=== PATIENT | female | born 1960 | race Caucasian/White ===

== ENCOUNTER 2017-11-14 10:14 | Inpatient (IN) | payer BC ==
[~2017-11-14] VITALS: Ht 170.2 cm; Wt 114.4 kg
[~2017-11-14 10:14] MED LIST: ATEN-173 PO; CYCL10TA6 PO; DICY1TAB25 PO; FLNIN NAE; LISI-787 PO; MELO15TA3 PO; NRN/300 PO; OMEP40CA41 PO; SERT1TAB68 PO
[2017-11-14] MEDS ORDERED: SODIUM CHLORIDE 0.9% 1000ML 1,000 ML IV STA ×3 (10:59→13:16)
[2017-11-14] MEDS ORDERED: ONDANSETRON INJ 2 MG/ML 2 ML VIAL IV STA (10:59)
[2017-11-14] MEDS ORDERED: HYDROmorphone INJ 1 MG/ML SYR IV PRN (11:00)
[2017-11-14 11:24] LABS: BASO % 0.1 %; BASO ABS # 0.02 K/uL (0-0.2); EOS % 0.7 %; EOS ABS # 0.11 K/uL (0-0.5); HEMOGLOBIN 13.3 g/dL (12.0-16.0); IG# 0.06 K/uL (0.00-0.02); LYMPH % 9.3 %; LYMPH ABS # 1.41 K/uL (1.2-3.4); MEAN CELL VOLUME 92.4 fL (80-100); MEAN CORPUSCULAR HEMOGLOBIN 31.5 pg (25-34); MEAN CORPUSCULAR HGB CONC 34.1 g/dl (32-36); MEAN PLATELET VOLUME 10.3 fL (7.4-10.4); MONO % 8.2 %; MONO ABS # 1.25 K/uL (0.11-0.59); NEUT % 81.3 %; NEUT ABS # 12.34 K/uL (1.4-6.5); PLATELET COUNT 277 K/uL (130-400); RED CELL DISTRIBUTION WIDTH CV 12.9 % (11.5-14.5); RED CELL DISTRIBUTION WIDTH SD 43.6 fL (36.4-46.3); WHITE BLOOD COUNT 15.19 K/uL (4.8-10.8)
[2017-11-14] MEDS ORDERED: POTA75TA PO (11:27)
[2017-11-14] MEDS ORDERED: RMR15 PO (11:27)
[2017-11-14] MEDS ORDERED: ASTN NAE (11:27)
[2017-11-14] MEDS ORDERED: PROP20TA67 PO (11:27)
[2017-11-14] MEDS ORDERED: FLUT0.15 NAE (11:27)
[2017-11-14] MEDS ORDERED: ASCA500 PO (11:27)
[2017-11-14] MEDS ORDERED: CHOL2000 PO (11:27)
[2017-11-14] MEDS ORDERED: VLT/75 PO (11:27)
[2017-11-14] MEDS ORDERED: RANI300T PO (11:27)
[2017-11-14] MEDS ORDERED: CALC-51 PO (11:27)
[2017-11-14 11:42] LABS: ALBUMIN 3.3 gm/dl (3.4-5.0); CREATININE 0.85 mg/dl (0.60-1.20); POTASSIUM 3.8 mmol/L (3.5-5.1)
[2017-11-14 11:45] LABS: TOTAL PROTEIN 7.4 gm/dl (6.4-8.2)
--- NOTE | 2017-11-14 12:28 | DIAGNOSTIC IMAGING REPORT ---
CT SCAN OF THE ABDOMEN AND PELVIS WITH IV CONTRAST CLINICAL HISTORY: Left lower quadrant abdominal pain. COMPARISON STUDY: Abdominal CT dated 07/02/2014. TECHNIQUE: Following the IV administration of 95 cc of Optiray 320, CT scan of the abdomen and pelvis is performed from the lung bases to the proximal femora. Images are reviewed in the axial, sagittal, and coronal planes. IV contrast was administered without complication. A dose lowering technique was utilized adhering to the principles of ALARA. CT DOSE: 1459.49 mGy.cm FINDINGS: Lung bases: The heart is normal in size and without pericardial effusion. The lung bases are clear. There is a tiny hiatal hernia. Liver: The contrast-enhanced liver is enlarged, measuring 20.2 cm in length. The liver demonstrates diffusely diminished attenuation consistent with hepatic steatosis. There is minimal central intrahepatic biliary ductal dilatation. The hepatic veins and portal veins are patent. Gallbladder: Surgically absent noting clips in the gallbladder fossa. Spleen: Normal in size and attenuation. There are calcified splenic granulomas. Pancreas: A 12 mm lipoma is incidentally noted in the pancreatic head. The pancreas is otherwise normal in appearance. Adrenal glands: Unremarkable. Kidneys: The contrast enhanced kidneys demonstrate mild cortical atrophy and are without hydronephrosis. The kidneys enhance symmetrically. There is a 3 mm nonobstructing calculus in the lower pole of the left kidney. Abdominal vasculature: The abdominal aorta is normal in course and caliber noting mild atherosclerotic calcification. Bowel: There is moderate colonic diverticulosis. There is significant wall thickening and edema with pericolonic inflammation and fluid seen involving the distal descending colon consistent with acute diverticulitis. No organized fluid collection is seen to indicate abscess. No bowel obstruction is identified. The appendix is well-visualized and normal. Peritoneum: There is trace free fluid in the pelvis. No intraperitoneal free air is identified. Lymphadenopathy: None. Pelvic viscera: The bladder, uterus, and adnexa are normal as visualized. Skeletal structures: The skeletal structures are osteopenic. Mild lumbosacral spondylosis is observed. No lytic or blastic lesions are seen. IMPRESSION: 1. Moderate colonic diverticulosis with evidence of acute diverticulitis involving the distal descending colon. No intraperitoneal free air is seen and there is no evidence of abscess. 2. Hepatomegaly and hepatic steatosis. 3. Nonobstructing left renal calculus. 4. Additional findings as above. Electronically signed by: Nader Caraballo M.D. 11/14/2017 12:27 PM Dictated Date/Time: 11/14/2017 12:21 PM
[2017-11-14] MEDS ORDERED: PIPERACILLIN/TAZOBACTAM 4.5 GM/100ML D5W IV STA (13:13)
[2017-11-14] MEDS ORDERED: HYDROmorphone INJ 0.5 MG/0.5 ML SYR IV STA (14:26)
[2017-11-14] MEDS ORDERED: FENTANYL CITRATE INJ 50 MCG/1 ML 2 ML VIAL IV STA (15:14)
[2017-11-14] MEDS ORDERED: SODIUM CHLORIDE 0.9% 500ML 500 ML IV STA (15:14)
--- NOTE | 2017-11-14 15:28 | EMERGENCY ROOM VISIT NOTE ---
History Report prepared by Grecia: Waldo Barragan Under the Supervision of: Dr. Odin Salinas M.D. First contact with patient: 10:44 Chief Complaint: ABDOMINAL PAIN Stated Complaint: ABDOMINAL AND BACK PAIN History of Present Illness The patient is a 57 year old female who presents to the Emergency Room with complaints of worsening left-sided abdominal pain for the past 3 days. She describes the pain as an 8/10 in severity. Patient states that the symptoms feel similar to when she was diagnosed with diverticulitis before. She states that the only difference is that she does not have diarrhea this time. Patient adds that she feels nauseas and has chills. She states that she does not know if the nausea is just because she hasn't eaten today. She states that her family doctor is Dr. Davis from [facility]. Patient adds that she was driven to the hospital by her mother. Pt denies LOC, headache, fevers, diaphoresis, visual changes, neck pain, chest pain, breathing difficulties, vomiting, back pain, melena, hematochezia, urinary symptoms, numbness, weakness, lymphadenopathy, rash, or other complaints. Source of History: patient Onset: 3 days Position: abdomen (Left-sided) Symptom Intensity: 8/10 Timing: worsening Modifying Factors (Relieving): other (None) Associated Symptoms: + chills, + nausea Review of Systems See HPI for pertinent positives and negatives. A total of ten systems were reviewed and were otherwise negative. Past Medical & Surgical Medical Problems: (1) Allergic rhinitis (2) Depression (3) Hypertension (4) Sleep apnea (5) Stomach ulcer Surgical Problems: (1) Status post cholecystectomy Family History Diabetes mellitus FHx: gallbladder disease FHx: myocardial infarction Hypertension Social History Smoking Status: Former Smoker Alcohol Use: none Marital Status: single Housing Status: lives with family Occupation Status: employed Current/Historical Medications Scheduled Ascorbic Acid (Vitamin C), 1 TAB PO DAILY Azelastine Hcl (Astelin Nasal [place]), 2 SPRAYS PIEDAD BID Calcium Carbonate-Vitamin D (Calcium), 1 TAB PO DAILY Cholecalciferol (Vitamin D3), 1 CAP PO DAILY Cyclobenzaprine Hcl (Flexeril), 10 MG PO HS Diclofenac Sod (Diclofenac Sodium Dr), 75 MG PO BID Fluticasone Propionate (Nasal) (Flonase Allergy Relief), 2 SPRAYS PIEDAD QAM Gabapentin (Neurontin), 300 MG PO TID Lisinopril/Hctz (Zestoretic 20MG/12.5MG), 0.5 TAB PO DAILY Mirtazapine (Mirtazapine), 15 MG PO HS Omeprazole (Prilosec), 40 MG PO QPM Potassium (Potassium), 1 TAB PO DAILY Propranolol (Inderal), 20 MG PO BID Ranitidine Hcl (Zantac), 300 MG PO HS Scheduled PRN Dicyclomine HCl (Dicyclomine HCl), 20 MG PO QID PRN for abdominal pain Allergies Coded Allergies: Sulfamethoxazole w/Trimethoprim (Verified Allergy, Severe, HIVES, 11/14/17) Physical Exam Vital Signs Date Time Temp Pulse Resp B/P (MAP) Pulse Ox O2 Delivery O2 Flow Rate FiO2 11/14/17 15:13 73 14 94/58 98 Nasal Cannula 2.0 11/14/17 15:01 88/55 11/14/17 14:55 70 15 98 Nasal Cannula 2.0 11/14/17 14:31 89/64 11/14/17 14:25 73 19 99 Nasal Cannula 2.0 11/14/17 14:06 69 15 101/53 99 Nasal Cannula 2.0 11/14/17 13:36 74 17 98 Nasal Cannula 2.0 11/14/17 13:31 98/64 11/14/17 13:16 103/58 11/14/17 13:06 68 13 97 Nasal Cannula 2.0 11/14/17 13:01 91/54 11/14/17 12:45 74 18 97 Nasal Cannula 2.0 11/14/17 12:29 74 16 97/65 96 Nasal Cannula 2.0 93/60 11/14/17 11:47 94 Nasal Cannula 2.0 11/14/17 11:45 75 16 88 Room Air 11/14/17 11:40 78 19 89 Room Air 11/14/17 11:35 79 19 87 Room Air 11/14/17 11:31 120/72 11/14/17 11:30 77 18 90 Room Air 11/14/17 11:25 77 11/14/17 11:25 75 15 89 Room Air 11/14/17 11:22 117/80 11/14/17 11:16 77 18 117/80 94 Room Air 11/14/17 10:21 37.5 80 20 165/106 94 Room Air Physical Exam GENERAL: Awake, alert, well-appearing, in no distress HENT: Normocephalic, atraumatic. Oropharynx unremarkable. EYES: Normal conjunctiva. Sclera non-icteric. NECK: Supple. No nuchal rigidity. FROM. No masses. RESPIRATORY: Clear to auscultation. No wheezes. No rales. Normal respiratory effort. CARDIAC: Normal rate. Normal rhythm. No murmurs. No rubs. Extremities warm and well perfused. Pulses equal. No JVD. GI: Soft, non-distended. LUQ and LLQ tenderness to palpation and worse in LLQ. No rebound or guarding. No masses. RECTAL: Deferred. MUSCULOSKELETAL: Atraumatic. Chest examination reveals no tenderness. The back is symmetrical on inspection without obvious abnormality. There is no CVA tenderness to palpation. No joint edema. LOWER EXTREMITIES: Calves are equal size bilaterally and non-tender. No edema. No discoloration. NEURO: Normal sensorium. No sensory or motor deficits noted. SKIN: No rash or jaundice noted. Medical Decision & Procedures ER Provider Diagnostic Interpretation: Radiology results as stated below per my review and radiologist interpretation: CT SCAN OF THE ABDOMEN AND PELVIS WITH IV CONTRAST CLINICAL HISTORY: Left lower quadrant abdominal pain. COMPARISON STUDY: Abdominal CT dated 07/02/2014. TECHNIQUE: Following the IV administration of 95 cc of Optiray 320, CT scan of the abdomen and pelvis is performed from the lung bases to the proximal femora. Images are reviewed in the axial, sagittal, and coronal planes. IV contrast was administered without complication. A dose lowering technique was utilized adhering to the principles of ALARA. CT DOSE: 1459.49 mGy.cm FINDINGS: Lung bases: The heart is normal in size and without pericardial effusion. The lung bases are clear. There is a tiny hiatal hernia. Liver: The contrast-enhanced liver is enlarged, measuring 20.2 cm in length. The liver demonstrates diffusely diminished attenuation consistent with hepatic steatosis. There is minimal central intrahepatic biliary ductal dilatation. The hepatic veins and portal veins are patent. Gallbladder: Surgically absent noting clips in the gallbladder fossa. Spleen: Normal in size and attenuation. There are calcified splenic granulomas. Pancreas: A 12 mm lipoma is incidentally noted in the pancreatic head. The pancreas is otherwise normal in appearance. Adrenal glands: Unremarkable. Kidneys: The contrast enhanced kidneys demonstrate mild cortical atrophy and are without hydronephrosis. The kidneys enhance symmetrically. There is a 3 mm nonobstructing calculus in the lower pole of the left kidney. Abdominal vasculature: The abdominal aorta is normal in course and caliber noting mild atherosclerotic calcification. Bowel: There is moderate colonic diverticulosis. There is significant wall thickening and edema with pericolonic inflammation and fluid seen involving the distal descending colon consistent with acute diverticulitis. No organized fluid collection is seen to indicate abscess. No bowel obstruction is identified. The appendix is well-visualized and normal. Peritoneum: There is trace free fluid in the pelvis. No intraperitoneal free air is identified. Lymphadenopathy: None. Pelvic viscera: The bladder, uterus, and adnexa are normal as visualized. Skeletal structures: The skeletal structures are osteopenic. Mild lumbosacral spondylosis is observed. No lytic or blastic lesions are seen. IMPRESSION: 1. Moderate colonic diverticulosis with evidence of acute diverticulitis involving the distal descending colon. No intraperitoneal free air is seen and there is no evidence of abscess. 2. Hepatomegaly and hepatic steatosis. 3. Nonobstructing left renal calculus. 4. Additional findings as above. Electronically signed by: Nader Caraballo M.D. 11/14/2017 12:27 PM Laboratory Results 11/14/17 10:58 Red Blood Count 4.22, Mean Corpuscular Volume 92.4, Mean Corpuscular Hemoglobin 31.5, Mean Corpuscular Hemoglobin Concent 34.1, Mean Platelet Volume 10.3, Neutrophils (%) (Auto) 81.3, Lymphocytes (%) (Auto) 9.3, Monocytes (%) (Auto) 8.2, Eosinophils (%) (Auto) 0.7, Basophils (%) (Auto) 0.1, Neutrophils # (Auto) 12.34, Lymphocytes # (Auto) 1.41, Monocytes # (Auto) 1.25, Eosinophils # (Auto) 0.11, Basophils # (Auto) 0.02 11/14/17 10:58 Test 11/14/17 10:45 11/14/17 10:58 Urine Color YELLOW Urine Appearance CLEAR (CLEAR) Urine pH 7.0 (4.5-7.5) Urine Specific [place] 1.019 (1.000-1.030) Urine Protein NEG (NEG) Urine Glucose (UA) NEG (NEG) Urine Ketones NEG (NEG) Urine Occult Blood NEG (NEG) Urine Nitrite NEG (NEG) Urine Bilirubin NEG (NEG) Urine Urobilinogen NEG (NEG) Urine Leukocyte Esterase TRACE (NEG) Urine WBC (Auto) 1-5 /hpf (0-5) Urine RBC (Auto) 5-10 /hpf (0-4) Urine Hyaline Casts (Auto) 0 /lpf (0-5) Urine Epithelial Cells (Auto) >30 /lpf (0-5) Urine Bacteria (Auto) NEG (NEG) White Blood Count 15.19 K/uL (4.8-10.8) Red Blood Count 4.22 M/uL (4.2-5.4) Hemoglobin 13.3 g/dL (12.0-16.0) Hematocrit 39.0 % (37-47) Mean Corpuscular Volume 92.4 fL (80-100) Mean Corpuscular Hemoglobin 31.5 pg (25-34) Mean Corpuscular Hemoglobin Concent 34.1 g/dl (32-36) Platelet Count 277 K/uL (130-400) Mean Platelet Volume 10.3 fL (7.4-10.4) Neutrophils (%) (Auto) 81.3 % Lymphocytes (%) (Auto) 9.3 % Monocytes (%) (Auto) 8.2 % Eosinophils (%) (Auto) 0.7 % Basophils (%) (Auto) 0.1 % Neutrophils # (Auto) 12.34 K/uL (1.4-6.5) Lymphocytes # (Auto) 1.41 K/uL (1.2-3.4) Monocytes # (Auto) 1.25 K/uL (0.11-0.59) Eosinophils # (Auto) 0.11 K/uL (0-0.5) Basophils # (Auto) 0.02 K/uL (0-0.2) RDW Standard Deviation 43.6 fL (36.4-46.3) RDW Coefficient of Variation 12.9 % (11.5-14.5) Immature Granulocyte % (Auto) 0.4 % Immature Granulocyte # (Auto) 0.06 K/uL (0.00-0.02) Anion Gap 6.0 mmol/L (3-11) Est Creatinine Clear Calc Drug Dose 97.7 ml/min Estimated GFR () 89.4 Estimated GFR (Non- 77.1 BUN/Creatinine Ratio 12.8 (10-20) Calcium Level 9.0 mg/dl (8.5-10.1) Total Bilirubin 0.6 mg/dl (0.2-1) Direct Bilirubin 0.2 mg/dl (0-0.2) Aspartate Amino Transf (AST/SGOT) 16 U/L (15-37) Alanine Aminotransferase (ALT/SGPT) 27 U/L (12-78) Alkaline Phosphatase 112 U/L (45-117) Total Protein 7.4 gm/dl (6.4-8.2) Albumin 3.3 gm/dl (3.4-5.0) Lipase 98 U/L (73-393) Laboratory results reviewed by me Medications Administered Medications (Trade) Dose Ordered Sig/[place] Route Start Time Stop Time Status Last Admin Dose Admin Ondansetron HCl (Zofran Inj) 4 mg NOW STAT IV 11/14/17 10:59 11/14/17 11:04 DC 11/14/17 11:14 4 MG Hydromorphone HCl (Dilaudid Inj) 1 mg Q15M PRN IV 11/14/17 11:00 11/14/17 14:27 DC 11/14/17 11:15 1 MG Sodium Chloride 1,000 ml @ 999 mls/hr Q1H1M STAT IV 11/14/17 10:59 11/14/17 11:59 DC 11/14/17 11:14 999 MLS/HR Piperacillin Sod/ Tazobactam Sod (Zosyn Iv) 4.5 gm NOW STAT IV 11/14/17 13:13 11/14/17 13:15 DC 11/14/17 13:19 4.5 GM Sodium Chloride 1,000 ml @ 999 mls/hr Q1H1M STAT IV 11/14/17 13:16 11/14/17 14:16 DC 11/14/17 13:19 999 MLS/HR Sodium Chloride 1,000 ml @ 200 mls/hr Q5H STAT IV 11/14/17 13:16 11/14/17 18:15 11/14/17 14:05 200 MLS/HR ED Course 1048: The patient was evaluated in room C4. A complete history and physical exam was performed. 1059: Sodium Chloride 1000 ml @ 999 mls/hr IV, Zofran Inj 4mg IV, and Dilaudid Inj 1mg IV 1313: Zosyn Iv 4.5gm IV 1316: Sodium Chloride 1000 ml @ 200 mls/hr IV and Sodium Chloride 1000 ml @ 999 mls/hr IV 1420: Patient states that he is still in a a lot of pain. I am calling the [facility] to admit the patient. Patient is agreeable to the treatment plan. 1426: Dilaudid Inj 0.5mg IV 1435: Upon reexamination, the patient will be further evaluated. I discussed the test results and treatment plan with Dr. Beckman. The patient will be evaluated for further management. Medical Decision Prior records/ancillary studies reviewed. Triage Nursing notes reviewed and agree them. The patient's history was concerning for abdominal pain. Differential diagnosis: Etiologies such as appendicitis, diverticulitis, PUD, biliary pathology, UTI, pancreatitis, obstruction, mesenteric ischemia, aortic pathology, infections, inflammatory bowel disease, renal colic, as well as others were entertained. Physical examination findings: As above. ER treatment provided: IV normal saline boluses and maintenance IV Dilaudid IV Zofran IV Zosyn On reassessment the patient felt better but her blood pressure was mildly marginal. She was not tachycardic or febrile. I suspect this was secondary to the narcotics. Her blood pressure improved after fluids and another dose of Dilaudid was ordered but was not given. This was changed to IV fentanyl 50 mcg. Diagnostics interpreted by me: The labs revealed a mild leukocytosis on CBC. Chemistry panel unremarkable. Imaging studies: CT scan as above The patient is still symptomatic with pain. Further management will be necessary in the hospital. The patient was in agreement. Consultation: A consultation was placed with the [facility]. The case was discussed and diagnostics were reviewed. The patient was evaluated in the ER for further treatment. Medication Reconcilliation Current Medication List: was personally reviewed by me Blood Pressure Screening Patient's blood pressure: Normal blood pressure Blood pressure disposition: Did not require urgent referral Consults Time Called: [phone] Consulting Physician: Dr. Beckman - [facility] Returned Call: [phone] Discussed the patient's case. The patient will be evaluated for further treatment and disposition. Impression Primary Impression: Acute diverticulitis Scribe Attestation The scribe's documentation has been prepared under my direction and personally reviewed by me in its entirety. I confirm that the note above accurately reflects all work, treatment, procedures, and medical decision making performed by me. Departure Information Dispostion Being Evaluated By Hospitalist Referrals Tony Davis M.D.([facility]) (PCP) Forms Call Back Authorization, HOME CARE DOCUMENTATION FORM, IMPORTANT VISIT INFORMATION Patient Instructions My [facility]
[2017-11-14] MEDS ORDERED: POLYETHYLENE (MIRALAX) 17 GM PACK PO PRN (16:00)
[2017-11-14] MEDS ORDERED: ONDANSETRON INJ 2 MG/ML 2 ML VIAL IV PRN (16:00)
[2017-11-14] MEDS ORDERED: ACETAMINOPHEN 325 MG TAB PO PRN (16:00)
[2017-11-14 16:45] VITALS: BP 102/70; PULSE 71; TEMP 36.7; O2SAT 98
[2017-11-14] MEDS ORDERED: PIPERACILL/TAZOBAC CONSULT ACTIVE PRN (17:00)
[2017-11-14 17:24] VITALS: O2SAT 98; Ht 170.2 cm; Wt 114.4 kg
--- NOTE | 2017-11-14 17:28 | History and Physical ---
History & Physical Date & Time of Service: Nov 14, 2017 at 17:01 Chief Complaint: Acute Diverticulitis Primary Care Physician: Tony Davis M.D.(CHERRY) History of Present Illness Source: patient Patient is a 57 yo female who presents to the ER for complaints LLQ and lower abdominal pain that initially began on , but then progressively worsened. The patient states she first felt the pain prior to defecation, which was relieved after a BM. She staters the pain happened again on Wednesday afternoon but did not go away completely after a BM. On Wednesday she reports having pain the entire day without any bowel movements the whole day; she also reports decreased appetite and poor PO intake. Today her pain intensified and again she did not have a BM, but also had some associated nausea. She reports experiencing SONG and chills the last 2 days as well. She has noticed she urinates less and the urine is darker. She otherwise denies any melena, hematochezia, diarrhea, vomiting, fevers, or dysuria. She denies any recent changes to her diet other than starting to eat colt seeds for the past 1 week. She reports having 2 prior episodes of diverticulitis, 1 of which required hospitalization, but not recently. Past Medical/Surgical History Medical Problems: (1) Allergic rhinitis (2) Depression (3) Diverticulitis (4) Hypertension (5) Sleep apnea (6) Hx of Gastric ulcer Surgical Problems: (1) Status post cholecystectomy Family History Diabetes mellitus FHx: gallbladder disease FHx: myocardial infarction Hypertension Social History Smoking Status: Former Smoker (states she smoked less than 5 years when she was in her 20's) Alcohol Use: occasionally Drug Use: none Marital Status: single Housing status: lives with family Occupational Status: employed Allergies Coded Allergies: Sulfamethoxazole w/Trimethoprim (Verified Allergy, Severe, HIVES, 11/14/17) Home Medications Scheduled Ascorbic Acid (Vitamin C), 1 TAB PO DAILY Azelastine Hcl (Astelin Nasal [place]), 2 SPRAYS PIEDAD BID Calcium Carbonate-Vitamin D (Calcium), 1 TAB PO DAILY Cholecalciferol (Vitamin D3), 1 CAP PO DAILY Cyclobenzaprine Hcl (Flexeril), 10 MG PO HS Diclofenac Sod (Diclofenac Sodium Dr), 75 MG PO BID Fluticasone Propionate (Nasal) (Flonase Allergy Relief), 2 SPRAYS PIEDAD QAM Gabapentin (Neurontin), 300 MG PO TID Lisinopril/Hctz (Zestoretic 20MG/12.5MG), 0.5 TAB PO DAILY Mirtazapine (Mirtazapine), 15 MG PO HS Omeprazole (Prilosec), 40 MG PO QPM Potassium (Potassium), 1 TAB PO DAILY Propranolol (Inderal), 20 MG PO BID Ranitidine Hcl (Zantac), 300 MG PO HS Scheduled PRN Dicyclomine HCl (Dicyclomine HCl), 20 MG PO QID PRN for abdominal pain Review of Systems Constitutional: + chills, No fever, No sweats, No weight loss, No weakness Eyes: No worsening of vision, No eye pain, No redness, No diplopia ENT: No hearing loss, No unusual epistaxis, No nasal symptoms, No sore throat Respiratory: No cough, No sputum, No wheezing, No shortness of breath Cardiovascular: No chest pain, No edema, No claudication, No palpitations Abdomen: + pain, + nausea, No vomiting, No diarrhea, No GI bleeding Musculoskeletal: No joint pain, No muscle pain, No swelling Genitourinary - Female: No dysuria, No urinary frequency, No urinary urgency, No hematuria Neurologic: No paralysis, No weakness, No numbness/tingling, No vertigo Psychiatric: No depression symptoms, No anxiety, No insomnia, No substance abuse Endocrine: No fatigue, No excessive thirst, No excessive urination Hematologic / Lymphatic: No abnormal bleeding/bruising, No swollen lymph nodes , No night sweats Integumentary: No rash, No itch, No new/changing skin lesions Physical Exam Vital Signs Date Time Temp Pulse Resp B/P (MAP) Pulse Ox O2 Delivery O2 Flow Rate FiO2 11/14/17 16:45 36.7 71 18 102/70 (81) 98 Nasal Cannula 2.0 11/14/17 16:31 72 18 110/61 95 Nasal Cannula 2.0 11/14/17 15:13 73 14 94/58 98 Nasal Cannula 2.0 11/14/17 15:01 88/55 11/14/17 14:55 70 15 98 Nasal Cannula 2.0 11/14/17 14:31 89/64 11/14/17 14:25 73 19 99 Nasal Cannula 2.0 11/14/17 14:06 69 15 101/53 99 Nasal Cannula 2.0 11/14/17 13:36 74 17 98 Nasal Cannula 2.0 11/14/17 13:31 98/64 11/14/17 13:16 103/58 11/14/17 13:06 68 13 97 Nasal Cannula 2.0 11/14/17 13:01 91/54 11/14/17 12:45 74 18 97 Nasal Cannula 2.0 11/14/17 12:29 74 16 97/65 96 Nasal Cannula 2.0 93/60 11/14/17 11:47 94 Nasal Cannula 2.0 11/14/17 11:45 75 16 88 Room Air 11/14/17 11:40 78 19 89 Room Air 11/14/17 11:35 79 19 87 Room Air 11/14/17 11:31 120/72 11/14/17 11:30 77 18 90 Room Air 11/14/17 11:25 77 11/14/17 11:25 75 15 89 Room Air 11/14/17 11:22 117/80 11/14/17 11:16 77 18 117/80 94 Room Air 11/14/17 10:21 37.5 80 20 165/106 94 Room Air General Appearance: WD/WN, no apparent distress Head: normocephalic, atraumatic Eyes: PERRL, EOMI, sclerae normal (conjunctivae clear) ENT: hearing grossly normal Neck: supple, no JVD, no carotid bruits, trachea midline Respiratory/Chest: chest non-tender, lungs clear, normal breath sounds, no respiratory distress, no accessory muscle use Cardiovascular: regular rate, rhythm, no edema, no gallop, no JVD, no murmur Abdomen/GI: normal bowel sounds, soft, no organomegaly, + tenderness Back: normal inspection, no CVA tenderness Extremities/Musculoskelatal: normal inspection, no calf tenderness, normal capillary refill, no pedal edema Neurologic/Psych: no motor/sensory deficits, alert, normal mood/affect, normal reflexes Skin: normal color, warm/dry, no rash Diagnostics Laboratory Results Results Past 24 Hours Test 11/14/17 10:45 11/14/17 10:58 Range/Units Urine Color YELLOW Urine Appearance CLEAR CLEAR Urine pH 7.0 4.5-7.5 Urine Specific [place] 1.019 1.000-1.030 Urine Protein NEG NEG Urine Glucose (UA) NEG NEG Urine Ketones NEG NEG Urine Occult Blood NEG NEG Urine Nitrite NEG NEG Urine Bilirubin NEG NEG Urine Urobilinogen NEG NEG Urine Leukocyte Esterase TRACE NEG Urine WBC (Auto) 1-5 0-5 /hpf Urine RBC (Auto) 5-10 0-4 /hpf Urine Hyaline Casts (Auto) 0 0-5 /lpf Urine Epithelial Cells (Auto) >30 0-5 /lpf Urine Bacteria (Auto) NEG NEG White Blood Count 15.19 4.8-10.8 K/uL Red Blood Count 4.22 4.2-5.4 M/uL Hemoglobin 13.3 12.0-16.0 g/dL Hematocrit 39.0 37-47 % Mean Corpuscular Volume 92.4 80-100 fL Mean Corpuscular Hemoglobin 31.5 25-34 pg Mean Corpuscular Hemoglobin Concent 34.1 32-36 g/dl Platelet Count 277 130-400 K/uL Mean Platelet Volume 10.3 7.4-10.4 fL Neutrophils (%) (Auto) 81.3 % Lymphocytes (%) (Auto) 9.3 % Monocytes (%) (Auto) 8.2 % Eosinophils (%) (Auto) 0.7 % Basophils (%) (Auto) 0.1 % Neutrophils # (Auto) 12.34 1.4-6.5 K/uL Lymphocytes # (Auto) 1.41 1.2-3.4 K/uL Monocytes # (Auto) 1.25 0.11-0.59 K/uL Eosinophils # (Auto) 0.11 0-0.5 K/uL Basophils # (Auto) 0.02 0-0.2 K/uL RDW Standard Deviation 43.6 36.4-46.3 fL RDW Coefficient of Variation 12.9 11.5-14.5 % Immature Granulocyte % (Auto) 0.4 % Immature Granulocyte # (Auto) 0.06 0.00-0.02 K/uL Sodium Level 141 136-145 mmol/L Potassium Level 3.8 3.5-5.1 mmol/L Chloride Level 107 98-107 mmol/L Carbon Dioxide Level 28 21-32 mmol/L Anion Gap 6.0 3-11 mmol/L Blood Urea Nitrogen 11 7-18 mg/dl Creatinine 0.85 0.60-1.20 mg/dl Est Creatinine Clear Calc Drug Dose 97.7 ml/min Estimated GFR () 89.4 Estimated GFR (Non- 77.1 BUN/Creatinine Ratio 12.8 10-20 Random Glucose 114 70-99 mg/dl Calcium Level 9.0 8.5-10.1 mg/dl Total Bilirubin 0.6 0.2-1 mg/dl Direct Bilirubin 0.2 0-0.2 mg/dl Aspartate Amino Transf (AST/SGOT) 16 15-37 U/L Alanine Aminotransferase (ALT/SGPT) 27 12-78 U/L Alkaline Phosphatase 112 45-117 U/L Total Protein 7.4 6.4-8.2 gm/dl Albumin 3.3 3.4-5.0 gm/dl Lipase 98 73-393 U/L Impression Assessment and Plan ACUTE DIVERTICULITIS: -3rd lifetime episode -CT Abd/pelvis do not indicate any abscess; report moderate colonic diverticulosis with evidence of acute diverticulitis involving the distal descending colon. No intraperitoneal free air is seen. Non- obstructing Left renal calculus, hepatic steatosis -patient requesting PO, will start on clear liquids only -not septic -hydrated with 4 L via IV in the ER -continue zosyn -will need outpatient evaluation by surgery due to multiple recurrent episodes HTN: -BP has been low since getting IV dilaudid; will hold home BP meds -monitor and resume meds as needed KARAN: -cpap q HS recommended CHRONIC RHINITIS: -continue nasal spray GERD: -continue PPI + ranitidine Resuscitation Status VTE Prophylaxis Will order VTE Prophylaxis: Yes
[2017-11-14] MEDS: PIPERACILL/TAZOBAC IV 4.5 GM in NSS 100 ML IV SCH (18:35)
[2017-11-14 18:37] VITALS: BP 109/72; PULSE 81; TEMP 37; O2SAT 96
[2017-11-14] MEDS: HYDROmorphone INJ 0.5 MG/0.5 ML SYR IV PRN (19:17)
[2017-11-14] MEDS: PANTOprazole SOD 40 MG TAB PO SCH (21:25)
[2017-11-14] MEDS: RANITIDINE HCL 150 MG TAB PO SCH (21:25)
[2017-11-14] MEDS: PROPRANOLOL HCL 20 MG TAB PO SCH (21:26)
[2017-11-14] MEDS: GABAPENTIN 300 MG CAP PO SCH (21:27)
[2017-11-14] MEDS: MIRTAZAPINE TAB 15 MG TAB PO SCH (21:27)
[2017-11-14] MEDS ORDERED: PIPERACILL/TAZOBAC IV 3.375 GM in DEXTROSE 5% 100ML 100 ML IV SCH (22:00)
[2017-11-15 00:38] VITALS: BP 116/71; PULSE 72; TEMP 36.7; O2SAT 95
[2017-11-15] MEDS: PIPERACILL/TAZOBAC IV 4.5 GM in NSS 100 ML IV SCH ×3 (03:09→18:10)
[2017-11-15] MEDS: HYDROmorphone INJ 0.5 MG/0.5 ML SYR IV PRN ×2 (03:24→07:55)
[2017-11-15 07:45] VITALS: BP 111/69; PULSE 83; TEMP 37; O2SAT 95
[2017-11-15] MEDS: PROPRANOLOL HCL 20 MG TAB PO SCH ×2 (07:51→21:03)
[2017-11-15] MEDS: FLUTICASONE PROPIONATE NA SPR 16 GM BTL NAE SCH (07:51)
[2017-11-15] MEDS: GABAPENTIN 300 MG CAP PO SCH ×3 (07:51→21:03)
[2017-11-15 08:00] VITALS: O2SAT 95
[2017-11-15 08:06] LABS: HEMATOCRIT 36.7 % (37-47); HEMOGLOBIN 12.1 g/dL (12.0-16.0); MEAN CELL VOLUME 93.9 fL (80-100); MEAN CORPUSCULAR HEMOGLOBIN 30.9 pg (25-34); MEAN PLATELET VOLUME 10.2 fL (7.4-10.4); PLATELET COUNT 248 K/uL (130-400); RED CELL DISTRIBUTION WIDTH CV 13.2 % (11.5-14.5); RED CELL DISTRIBUTION WIDTH SD 45.4 fL (36.4-46.3); WHITE BLOOD COUNT 11.64 K/uL (4.8-10.8)
[2017-11-15 08:38] LABS: CALCIUM 8.4 mg/dl (8.5-10.1); CREATININE 0.87 mg/dl (0.60-1.20); POTASSIUM 3.7 mmol/L (3.5-5.1)
[2017-11-15 15:57] VITALS: BP 126/79; PULSE 94; TEMP 36.9; O2SAT 95
[2017-11-15 16:00] VITALS: O2SAT 95
--- NOTE | 2017-11-15 18:46 | Progress Note ---
Medicine Progress Note Date & Time of Visit: Nov 15, 2017 at 18:46. Subjective Patient doing better, states her pain feels as though it is less severe today. Has been tolerating clear liquids without issues. No BM yet but passing flatus. Denies any N/V. No overnight events noted. Has been ambulating in the room without difficulty. Objective Last 8 Hrs Date Time Temp Pulse Resp B/P (MAP) Pulse Ox O2 Delivery O2 Flow Rate FiO2 11/15/17 16:00 95 Room Air 11/15/17 15:57 36.9 94 18 126/79 (95) 95 Room Air Physical Exam: GENERAL: Patient is in no acute distress. HEENT: No acute trauma, normocephalic, mucous membranes moist, no nasal congestion, no scleral icterus. NECK: No stridor, trachea is midline. LUNGS: Clear to auscultation bilaterally, no wheeze, no rhonchi, breath sounds equal. HEART: Without murmurs gallops or rubs, regular rate and rhythm. ABDOMEN: Soft, nondistended, bowel sounds positive, slight tenderness in LLQ EXTREMITIES: No cyanosis or edema, full range of motion of all the joints without pain or difficulty, no signs for acute trauma. NEUROLOGIC: Oriented x 3, no acute motor or sensory deficits, no focal weakness. SKIN: No rash, no jaundice, no diaphoresis. Laboratory Results: Last 24 Hours Test 11/15/17 07:45 White Blood Count 11.64 K/uL Red Blood Count 3.91 M/uL Hemoglobin 12.1 g/dL Hematocrit 36.7 % Mean Corpuscular Volume 93.9 fL Mean Corpuscular Hemoglobin 30.9 pg Mean Corpuscular Hemoglobin Concent 33.0 g/dl RDW Standard Deviation 45.4 fL RDW Coefficient of Variation 13.2 % Platelet Count 248 K/uL Mean Platelet Volume 10.2 fL Sodium Level 142 mmol/L Potassium Level 3.7 mmol/L Chloride Level 107 mmol/L Carbon Dioxide Level 31 mmol/L Anion Gap 4.0 mmol/L Blood Urea Nitrogen 7 mg/dl Creatinine 0.87 mg/dl Est Creatinine Clear Calc Drug Dose 95.4 ml/min Estimated GFR () 86.9 Estimated GFR (Non- 75.0 BUN/Creatinine Ratio 8.5 Random Glucose 102 mg/dl Calcium Level 8.4 mg/dl Magnesium Level 2.1 mg/dl Assessment & Plan ACUTE DIVERTICULITIS: -3rd lifetime episode -CT Abd/pelvis do not indicate any abscess; report moderate colonic diverticulosis with evidence of acute diverticulitis involving the distal descending colon. No intraperitoneal free air is seen. Non- obstructing Left renal calculus, hepatic steatosis -patient requesting PO, will advance diet as tolerated; requesting full liquids today, taking in PO well without increase in abdominal pain -not septic -hydrated with 4 L via IV in the ER -continue zosyn day#2 -will need outpatient evaluation by surgery due to multiple recurrent episodes HTN: -BP has been low since admission; will hold home BP meds for now -monitor and resume meds as needed KARAN: -cpap q HS recommended CHRONIC RHINITIS: -continue nasal spray GERD: -continue PPI + ranitidine Current Inpatient Medications: Current Inpatient Medications Medications (Trade) Dose Ordered Sig/[place] Route Start Time Stop Time Status Last Admin Dose Admin Acetaminophen (Tylenol Tab) 650 mg Q4H PRN PO 11/14/17 16:00 12/14/17 15:59 Polyethylene (Miralax Powder Packet) 17 gm DAILY PRN PO 11/14/17 16:00 12/14/17 15:59 Ondansetron HCl (Zofran Inj) 4 mg Q6H PRN IV 11/14/17 16:00 12/14/17 15:59 Hydromorphone HCl (Dilaudid Inj) 0.5 mg Q4 PRN IV 11/14/17 17:00 11/28/17 16:59 11/15/17 07:55 0.5 MG Miscellaneous Information (Consult) 1 ea UD PRN N/A 11/14/17 17:00 12/14/17 16:59 Piperacillin Sod/ Tazobactam Sod 4.5 gm/Sodium Chloride 120 ml @ 30 mls/hr Q8H IV 11/14/17 18:00 11/24/17 17:59 11/15/17 18:10 30 MLS/HR Fluticasone Propionate (Flonase Nasal [place]) 2 sprays QAM PIEDAD 11/15/17 08:00 12/15/17 07:59 11/15/17 07:51 2 SPRAYS Gabapentin (Neurontin Cap) 300 mg TID PO 4/29/18 20:00 12/14/17 19:59 11/15/17 13:34 300 MG Mirtazapine (Remeron Tab) 15 mg HS PO 11/14/17 21:00 12/14/17 20:59 11/14/17 21:27 15 MG Propranolol HCl (Inderal Tab) 20 mg BID PO 11/14/17 20:00 12/14/17 19:59 11/15/17 07:51 20 MG Pantoprazole Sodium (Protonix Tab) 40 mg QPM PO 11/14/17 21:00 12/14/17 20:59 11/14/17 21:25 40 MG Ranitidine HCl (zANTac TAB) 300 mg HS PO 11/14/17 21:00 12/14/17 20:59 11/14/17 21:25 300 MG
[2017-11-15 21:01] VITALS: BP 125/75; PULSE 88
[2017-11-15] MEDS: MIRTAZAPINE TAB 15 MG TAB PO SCH (21:03)
[2017-11-15] MEDS: PANTOprazole SOD 40 MG TAB PO SCH (21:03)
[2017-11-15] MEDS: RANITIDINE HCL 150 MG TAB PO SCH (21:03)
[2017-11-16] VITALS: BP 143/87; PULSE 94; TEMP 36.7; O2SAT 95
[2017-11-16] MEDS: HYDROmorphone INJ 0.5 MG/0.5 ML SYR IV PRN (01:07)
[2017-11-16] MEDS: PIPERACILL/TAZOBAC IV 4.5 GM in NSS 100 ML IV SCH ×3 (01:10→17:58)
[2017-11-16 05:20] LABS: HEMATOCRIT 36.4 % (37-47); MEAN CELL VOLUME 93.3 fL (80-100); MEAN CORPUSCULAR HEMOGLOBIN 30.8 pg (25-34); PLATELET COUNT 273 K/uL (130-400); RED CELL DISTRIBUTION WIDTH CV 12.9 % (11.5-14.5); RED CELL DISTRIBUTION WIDTH SD 44.2 fL (36.4-46.3); WHITE BLOOD COUNT 9.57 K/uL (4.8-10.8)
[2017-11-16 05:55] LABS: CREATININE 0.95 mg/dl (0.60-1.20); POTASSIUM 3.8 mmol/L (3.5-5.1)
[2017-11-16 07:44] VITALS: BP 124/89; PULSE 80; TEMP 36.8; O2SAT 96
[2017-11-16] MEDS: PROPRANOLOL HCL 20 MG TAB PO SCH ×2 (08:16→20:26)
[2017-11-16] MEDS: GABAPENTIN 300 MG CAP PO SCH ×3 (08:16→20:25)
[2017-11-16] MEDS: FLUTICASONE PROPIONATE NA SPR 16 GM BTL NAE SCH (08:17)
--- NOTE | 2017-11-16 10:21 | Progress Note ---
Medicine Progress Note Date & Time of Visit: November 16, 2017 at 10:21. Subjective seen sitting up in bedside chair comfortable states LLQ pain is improving has some abdominal cramping- patient reports this developed after having cream of wheat last night and this morning no nausea denies fever/chills no other symptoms Objective Last 8 Hrs Date Time Temp Pulse Resp B/P (MAP) Pulse Ox O2 Delivery O2 Flow Rate FiO2 11/16/17 08:30 Room Air 11/16/17 07:44 36.8 80 18 124/89 (101) 96 Room Air Physical Exam: General- adult Head- atraumatic Eyes- PERRL, EOMI, anicteric ENT- oropharynx clear Neck- supple, no JVD, no adenopathy, no thyromegaly Lungs- clear to auscultation bilaterally Heart- regular rhythm; no murmur, normal rate Abdomen- normal bowel sounds, soft, nontender, non distended Extremities- no pretibial edema, no calf tenderness Neuro- alert, oriented x 3; no gross focal deficits Skin- warm & dry Laboratory Results: Last 24 Hours Test 11/16/17 05:06 White Blood Count 9.57 K/uL Red Blood Count 3.90 M/uL Hemoglobin 12.0 g/dL Hematocrit 36.4 % Mean Corpuscular Volume 93.3 fL Mean Corpuscular Hemoglobin 30.8 pg Mean Corpuscular Hemoglobin Concent 33.0 g/dl RDW Standard Deviation 44.2 fL RDW Coefficient of Variation 12.9 % Platelet Count 273 K/uL Mean Platelet Volume 10.0 fL Sodium Level 142 mmol/L Potassium Level 3.8 mmol/L Chloride Level 106 mmol/L Carbon Dioxide Level 32 mmol/L Anion Gap 4.0 mmol/L Blood Urea Nitrogen 7 mg/dl Creatinine 0.95 mg/dl Est Creatinine Clear Calc Drug Dose 87.4 ml/min Estimated GFR () 78.2 Estimated GFR (Non- 67.4 BUN/Creatinine Ratio 7.3 Random Glucose 108 mg/dl Calcium Level 9.0 mg/dl Magnesium Level 2.2 mg/dl Assessment & Plan ACUTE DIVERTICULITIS: -3rd lifetime episode -CT Abd/pelvis do not indicate any abscess; report moderate colonic diverticulosis with evidence of acute diverticulitis involving the distal descending colon. No intraperitoneal free air is seen. Non- obstructing Left renal calculus, hepatic steatosis - pain improving no fever leukocytosis resolved - advanced diet to soft, low lactose continue Zosyn day 3--> transition to PO Cipro and Flagyl on discharge -will need outpatient evaluation by surgery due to multiple recurrent episodes HTN: - BP on the lower side hold BP medications for now monitor KARAN: -cpap q HS recommended CHRONIC RHINITIS: -continue nasal spray GERD: -continue PPI + ranitidine DVT Prophylaxis SCDs Disposition pending anticipate d/c home when medically stable Current Inpatient Medications: Current Inpatient Medications Medications (Trade) Dose Ordered Sig/[place] Route Start Time Stop Time Status Last Admin Dose Admin Acetaminophen (Tylenol Tab) 650 mg Q4H PRN PO 11/14/17 16:00 12/14/17 15:59 Polyethylene (Miralax Powder Packet) 17 gm DAILY PRN PO 11/14/17 16:00 12/14/17 15:59 Ondansetron HCl (Zofran Inj) 4 mg Q6H PRN IV 11/14/17 16:00 12/14/17 15:59 Hydromorphone HCl (Dilaudid Inj) 0.5 mg Q4 PRN IV 11/14/17 17:00 11/28/17 16:59 11/16/17 01:07 0.5 MG Miscellaneous Information (Consult) 1 ea UD PRN N/A 11/14/17 17:00 12/14/17 16:59 Piperacillin Sod/ Tazobactam Sod 4.5 gm/Sodium Chloride 120 ml @ 30 mls/hr Q8H IV 11/14/17 18:00 11/24/17 17:59 11/16/17 10:08 30 MLS/HR Fluticasone Propionate (Flonase Nasal [place]) 2 sprays QAM PIEDAD 11/15/17 08:00 12/15/17 07:59 11/16/17 08:17 2 SPRAYS Gabapentin (Neurontin Cap) 300 mg TID PO 11/14/17 20:00 12/14/17 19:59 11/16/17 08:16 300 MG Mirtazapine (Remeron Tab) 15 mg HS PO 11/14/17 21:00 12/14/17 20:59 11/15/17 21:03 15 MG Propranolol HCl (Inderal Tab) 20 mg BID PO 11/14/17 20:00 12/14/17 19:59 11/16/17 08:16 20 MG Pantoprazole Sodium (Protonix Tab) 40 mg QPM PO 11/14/17 21:00 12/14/17 20:59 11/15/17 21:03 40 MG Ranitidine HCl (zANTac TAB) 300 mg HS PO 11/14/17 21:00 12/14/17 20:59 11/15/17 21:03 300 MG
[2017-11-16] MEDS: DICYCLOMINE HCL 10 MG CAP PO PRN (11:00)
[2017-11-16] MEDS: KETOROLAC TROMETHAMINE 15 MG/ML VIAL IV PRN ×2 (13:40→22:06)
[2017-11-16 15:39] VITALS: BP 102/67; PULSE 68; TEMP 36.4; O2SAT 95
[2017-11-16 16:00] VITALS: O2SAT 95
[2017-11-16] MEDS: MIRTAZAPINE TAB 15 MG TAB PO SCH (20:25)
[2017-11-16] MEDS: RANITIDINE HCL 150 MG TAB PO SCH (20:25)
[2017-11-16] MEDS: PANTOprazole SOD 40 MG TAB PO SCH (20:26)
[2017-11-16 23:42] VITALS: BP 99/62; PULSE 75; TEMP 36.8; O2SAT 95
[2017-11-17] MEDS: PIPERACILL/TAZOBAC IV 4.5 GM in NSS 100 ML IV SCH ×2 (01:36→09:52)
[2017-11-17 07:49] VITALS: BP 135/83; PULSE 78; TEMP 36.8; O2SAT 97
[2017-11-17 08:13] LABS: BASO % 0.3 %; BASO ABS # 0.02 K/uL (0-0.2); EOS % 2.8 %; EOS ABS # 0.19 K/uL (0-0.5); HEMATOCRIT 37.4 % (37-47); HEMOGLOBIN 12.6 g/dL (12.0-16.0); IG# 0.02 K/uL (0.00-0.02); LYMPH % 21.4 %; LYMPH ABS # 1.48 K/uL (1.2-3.4); MEAN CELL VOLUME 92.1 fL (80-100); MEAN CORPUSCULAR HGB CONC 33.7 g/dl (32-36); MEAN PLATELET VOLUME 9.5 fL (7.4-10.4); MONO % 7.7 %; MONO ABS # 0.53 K/uL (0.11-0.59); NEUT % 67.5 %; NEUT ABS # 4.66 K/uL (1.4-6.5); PLATELET COUNT 294 K/uL (130-400); RED CELL DISTRIBUTION WIDTH CV 12.4 % (11.5-14.5)
[2017-11-17] MEDS: DICYCLOMINE HCL 10 MG CAP PO PRN (08:32)
[2017-11-17] MEDS: GABAPENTIN 300 MG CAP PO SCH ×2 (08:32→14:01)
[2017-11-17] MEDS: PROPRANOLOL HCL 20 MG TAB PO SCH (08:32)
[2017-11-17] MEDS: FLUTICASONE PROPIONATE NA SPR 16 GM BTL NAE SCH (08:34)
[2017-11-17 08:39] LABS: CALCIUM 9.1 mg/dl (8.5-10.1); CREATININE 0.93 mg/dl (0.60-1.20); POTASSIUM 4.1 mmol/L (3.5-5.1)
[2017-11-17 10:57] VITALS: BP 135/83; PULSE 78; TEMP 36.8; O2SAT 97
--- NOTE | 2017-11-17 11:34 | Progress Note ---
Medicine Progress Note Date & Time of Visit: November 17, 2017 at 11:29. Subjective seen resting in bedside chair comfortable states she feels much better today LLQ is very minimal now "gas cramps" also improving tolerating diet well (+) BM, normal no other symptoms states she is ready and would like to be discharged today Objective Last 8 Hrs Date Time Temp Pulse Resp B/P (MAP) Pulse Ox O2 Delivery O2 Flow Rate FiO2 11/17/17 10:57 36.8 78 18 97 Room Air 11/17/17 08:00 Room Air 11/17/17 07:49 36.8 78 18 135/83 (100) 97 Room Air Physical Exam: General- adult Eyes- anicteric Neck- supple, no JVD Lungs- clear breath sounds bilaterally, no rales/wheezes Heart- regular rhythm; no murmur, normal rate Abdomen- normal bowel sounds, non distended, soft, nontender Extremities- no pretibial edema, no calf tenderness Neuro- alert, oriented x 3; no gross focal deficits Skin- warm & dry Laboratory Results: Last 24 Hours Test 11/17/17 08:06 White Blood Count 6.90 K/uL Red Blood Count 4.06 M/uL Hemoglobin 12.6 g/dL Hematocrit 37.4 % Mean Corpuscular Volume 92.1 fL Mean Corpuscular Hemoglobin 31.0 pg Mean Corpuscular Hemoglobin Concent 33.7 g/dl Platelet Count 294 K/uL Mean Platelet Volume 9.5 fL Neutrophils (%) (Auto) 67.5 % Lymphocytes (%) (Auto) 21.4 % Monocytes (%) (Auto) 7.7 % Eosinophils (%) (Auto) 2.8 % Basophils (%) (Auto) 0.3 % Neutrophils # (Auto) 4.66 K/uL Lymphocytes # (Auto) 1.48 K/uL Monocytes # (Auto) 0.53 K/uL Eosinophils # (Auto) 0.19 K/uL Basophils # (Auto) 0.02 K/uL RDW Standard Deviation 42.0 fL RDW Coefficient of Variation 12.4 % Immature Granulocyte % (Auto) 0.3 % Immature Granulocyte # (Auto) 0.02 K/uL Sodium Level 141 mmol/L Potassium Level 4.1 mmol/L Chloride Level 106 mmol/L Carbon Dioxide Level 31 mmol/L Anion Gap 4.0 mmol/L Blood Urea Nitrogen 10 mg/dl Creatinine 0.93 mg/dl Est Creatinine Clear Calc Drug Dose 89.3 ml/min Estimated GFR () 80.2 Estimated GFR (Non- 69.2 BUN/Creatinine Ratio 11.2 Random Glucose 112 mg/dl Calcium Level 9.1 mg/dl Assessment & Plan ACUTE DIVERTICULITIS: -3rd lifetime episode -CT Abd/pelvis do not indicate any abscess; report moderate colonic diverticulosis with evidence of acute diverticulitis involving the distal descending colon. No intraperitoneal free air is seen. Non- obstructing Left renal calculus, hepatic steatosis - pain much better no fever leukocytosis resolved - advanced diet to soft, low lactose--> tolerating well on Zosyn day 4 - discharge on: Cipro 500mg BID and Metronidazole 500mg TID x 1 week Bentyl PRN low fat, low fiber, low lactose diet ff up with PCP this wednesday -will need outpatient evaluation by surgery due to multiple recurrent episodes HYPERTENSION - resume usual medications KARAN: -cpap q HS recommended CHRONIC RHINITIS: -continue nasal spray GERD: -continue PPI + ranitidine DVT Prophylaxis SCDs Disposition d./c home today ff up with PCP this coming Wednesday Current Inpatient Medications: Current Inpatient Medications Medications (Trade) Dose Ordered Sig/[place] Route Start Time Stop Time Status Last Admin Dose Admin Acetaminophen (Tylenol Tab) 650 mg Q4H PRN PO 11/14/17 16:00 12/14/17 15:59 Polyethylene (Miralax Powder Packet) 17 gm DAILY PRN PO 11/14/17 16:00 12/14/17 15:59 11/16/17 13:41 17 GM Ondansetron HCl (Zofran Inj) 4 mg Q6H PRN IV 11/14/17 16:00 12/14/17 15:59 Hydromorphone HCl (Dilaudid Inj) 0.5 mg Q4 PRN IV 11/14/17 17:00 11/28/17 16:59 11/16/17 01:07 0.5 MG Miscellaneous Information (Consult) 1 ea UD PRN N/A 11/14/17 17:00 12/14/17 16:59 Piperacillin Sod/ Tazobactam Sod 4.5 gm/Sodium Chloride 120 ml @ 30 mls/hr Q8H IV 11/14/17 18:00 11/24/17 17:59 11/17/17 09:52 30 MLS/HR Fluticasone Propionate (Flonase Nasal [place]) 2 sprays QAM PIEDAD 11/15/17 08:00 12/15/17 07:59 11/17/17 08:34 2 SPRAYS Gabapentin (Neurontin Cap) 300 mg TID PO 11/14/17 20:00 12/14/17 19:59 11/17/17 08:32 300 MG Mirtazapine (Remeron Tab) 15 mg HS PO 11/14/17 21:00 12/14/17 20:59 11/16/17 20:25 15 MG Propranolol HCl (Inderal Tab) 20 mg BID PO 11/14/17 20:00 12/14/17 19:59 11/17/17 08:32 20 MG Pantoprazole Sodium (Protonix Tab) 40 mg QPM PO 11/14/17 21:00 12/14/17 20:59 11/16/17 20:26 40 MG Ranitidine HCl (zANTac TAB) 300 mg HS PO 11/14/17 21:00 12/14/17 20:59 11/16/17 20:25 300 MG Dicyclomine HCl (Bentyl Cap) 10 mg QID PRN PO 11/16/17 10:15 12/16/17 10:14 11/17/17 08:32 10 MG Ketorolac Tromethamine (Toradol Inj) 15 mg Q6H PRN IV 11/16/17 10:15 11/21/17 10:14 11/16/17 22:06 15 MG
[2017-11-17] MEDS ORDERED: BNT10 PO (11:38)
[2017-11-17] MEDS ORDERED: MTR500 PO (11:38)
[2017-11-17] MEDS ORDERED: CPR500 PO (11:38)
[2017-11-17] MEDS ORDERED: VLT/75 PO (11:38)
--- NOTE | 2017-11-17 11:42 | Discharge Instructions ---
Discharge Instructions Date of Service November 17, 2017. Admission Reason for Admission: Acute Diverticulitis Discharge Discharge Diagnosis / Problem: ACUTE DIVERTICULITIS Discharge Goals Goal(s): Diagnostic testing, Therapeutic intervention Activity Recommendations Activity Limitations: as noted below (NO HEAVY EXERTION UNTIL RE-EVALUATED BY PRIMARY CARE PHYSICIAN) Lifting Limitations: until after follow-up appointment Exercise/Sports Limitations: until after follow-up appointment Driving or Machine Use: NO DRIVING UNTIL RE-EVALUATED BY PRIMARY CARE PHYSICIAN . Instructions / Follow-Up Instructions / Follow-Up PLEASE REVIEW YOUR NEW MEDICATION LIST AND FOLLOW INSTRUCTIONS CAREFULLY. ENSURE ADEQUATE DAILY FLUID INTAKE. CALL YOUR PRIMARY CARE PHYSICIAN OR RETURN TO ER IMMEDIATELY IF WITH RECURRENCE OF SYMPTOMS, INCREASING ABDOMINAL PAIN, FEVER/CHILLS, NAUSEA, BLOODY OR BLACK STOOLS. FOLLOW UP WITH PRIMARY CARE PHYSICIAN THIS COMING WEDNESDAY. Current Hospital Diet Patient's current hospital diet: AHA Diet (Heart Healthy), Low Lactose Diet Discharge Diet Recommended Diet: AHA Diet (Heart Healthy), Low Fiber Diet, Low Fat Diet, Low Lactose Diet Procedures Procedures Performed: CT CSCAN OF THE ABOMEN AND PELVIS Pending Studies Studies pending at discharge: no Medical Emergencies . Who to Call and When: Medical Emergencies: If at any time you feel your situation is an emergency, please call 911 immediately. . Non-Emergent Contact Non-Emergency issues call your: Primary Care Provider Call Non-Emergent contact if: you have a fever, your pain is not controlled, your pain is worsening, you have any medication questions . . "Provider Documentation" section prepared by Manuel Clifford. .
--- NOTE | 2017-11-17 12:24 | Discharge Summary ---
Discharge Summary Date of Service November 17, 2017. Discharge Summary Admission Date: Nov 14, 2017 at 15:53 Discharge Date: November 17, 2017 Discharge Disposition: Home Principal Diagnosis: ACUTE DIVERTICULITIS: Secondary Diagnoses/Problems: Please refer to hospital course below. Procedures: CT SCAN OF THE ABDOMEN AND PELVIS WITH IV CONTRAST CLINICAL HISTORY: Left lower quadrant abdominal pain. COMPARISON STUDY: Abdominal CT dated 07/02/2014. TECHNIQUE: Following the IV administration of 95 cc of Optiray 320, CT scan of the abdomen and pelvis is performed from the lung bases to the proximal femora. Images are reviewed in the axial, sagittal, and coronal planes. IV contrast was administered without complication. A dose lowering technique was utilized adhering to the principles of ALARA. CT DOSE: 1459.49 mGy.cm FINDINGS: Lung bases: The heart is normal in size and without pericardial effusion. The lung bases are clear. There is a tiny hiatal hernia. Liver: The contrast-enhanced liver is enlarged, measuring 20.2 cm in length. The liver demonstrates diffusely diminished attenuation consistent with hepatic steatosis. There is minimal central intrahepatic biliary ductal dilatation. The hepatic veins and portal veins are patent. Gallbladder: Surgically absent noting clips in the gallbladder fossa. Spleen: Normal in size and attenuation. There are calcified splenic granulomas. Pancreas: A 12 mm lipoma is incidentally noted in the pancreatic head. The pancreas is otherwise normal in appearance. Adrenal glands: Unremarkable. Kidneys: The contrast enhanced kidneys demonstrate mild cortical atrophy and are without hydronephrosis. The kidneys enhance symmetrically. There is a 3 mm nonobstructing calculus in the lower pole of the left kidney. Abdominal vasculature: The abdominal aorta is normal in course and caliber noting mild atherosclerotic calcification. Bowel: There is moderate colonic diverticulosis. There is significant wall thickening and edema with pericolonic inflammation and fluid seen involving the distal descending colon consistent with acute diverticulitis. No organized fluid collection is seen to indicate abscess. No bowel obstruction is identified. The appendix is well-visualized and normal. Peritoneum: There is trace free fluid in the pelvis. No intraperitoneal free air is identified. Lymphadenopathy: None. Pelvic viscera: The bladder, uterus, and adnexa are normal as visualized. Skeletal structures: The skeletal structures are osteopenic. Mild lumbosacral spondylosis is observed. No lytic or blastic lesions are seen. IMPRESSION: 1. Moderate colonic diverticulosis with evidence of acute diverticulitis involving the distal descending colon. No intraperitoneal free air is seen and there is no evidence of abscess. 2. Hepatomegaly and hepatic steatosis. 3. Nonobstructing left renal calculus. 4. Additional findings as above. Electronically signed by: Nader Carablalo M.D. 11/14/2017 12:27 PM Pending Studies/Follow-Up: Please refer to hospital course below. Medication Reconciliation New Medications: Ciprofloxacin (Ciprofloxacin HCl) 500 Mg Tab 1 TAB PO BID for 7 Days, #14 TAB 0 Refills Metronidazole (Metronidazole) 500 Mg Tab 1 TAB PO TID for 7 Days, #21 TAB 0 Refills Dicyclomine HCl (Dicyclomine HCl) 10 Mg Cap 10 MG PO QID PRN for abdominal pain for 5 Days, #15 CAP 0 Refills Changed Medications: Diclofenac Sod (Diclofenac Sodium Dr) 75 Mg Tabcr 75 MG PO BID PRN for Pain for 7 Days (Medication details modified) Continued Medications: Ascorbic Acid (Vitamin C) Unknown Strength Tab 1 TAB PO DAILY Azelastine Hcl (Astelin Nasal [place]) 200 Sprays/30 Ml [place] 2 SPRAYS PIEDAD BID Calcium Carbonate-Vitamin D (Calcium) 1 Tab Tab 1 TAB PO DAILY Cholecalciferol (Vitamin D3) Unknown Strength Cap 1 CAP PO DAILY, CAP Cyclobenzaprine Hcl (Flexeril) 10 Mg Tab 10 MG PO HS Fluticasone Propionate (Nasal) (Flonase Allergy Relief) 50 Mcg/Act Spr 2 SPRAYS PIEDAD QAM Gabapentin (Neurontin) 300 Mg Cap 300 MG PO TID Lisinopril/Hctz (Zestoretic 20MG/12.5MG) Tab 0.5 TAB PO DAILY, TAB 1/2 pill daily Mirtazapine (Mirtazapine) 15 Mg Tab 15 MG PO HS Omeprazole (Prilosec) 40 Mg Cap 40 MG PO QPM Potassium (Potassium) Unknown Strength Tab 1 TAB PO DAILY OTC POTASSIUM Propranolol (Inderal) 20 Mg Tab 20 MG PO BID Ranitidine Hcl (Zantac) 300 Mg Tab 300 MG PO HS Discontinued Medications: Dicyclomine HCl (Dicyclomine HCl) 20 Mg Tab 20 MG PO QID PRN for abdominal pain Admission Information HPI (per Admitting provider): Patient is a 57 yo female who presents to the ER for complaints LLQ and lower abdominal pain that initially began on , but then progressively worsened. The patient states she first felt the pain prior to defecation, which was relieved after a BM. She staters the pain happened again on Wednesday afternoon but did not go away completely after a BM. On Wednesday she reports having pain the entire day without any bowel movements the whole day; she also reports decreased appetite and poor PO intake. Today her pain intensified and again she did not have a BM, but also had some associated nausea. She reports experiencing SONG and chills the last 2 days as well. She has noticed she urinates less and the urine is darker. She otherwise denies any melena, hematochezia, diarrhea, vomiting, fevers, or dysuria. She denies any recent changes to her diet other than starting to eat colt seeds for the past 1 week. She reports having 2 prior episodes of diverticulitis, 1 of which required hospitalization, but not recently. Physical Exam (per Admitting): General Appearance: WD/WN, no apparent distress Head: normocephalic, atraumatic Eyes: PERRL, EOMI, sclerae normal (conjunctivae clear) ENT: hearing grossly normal Neck: supple, no JVD, no carotid bruits, trachea midline Respiratory/Chest: chest non-tender, lungs clear, normal breath sounds, no respiratory distress, no accessory muscle use Cardiovascular: regular rate, rhythm, no edema, no gallop, no JVD, no murmur Abdomen/GI: normal bowel sounds, soft, no organomegaly, + tenderness Back: normal inspection, no CVA tenderness Extremities/Musculoskelatal: normal inspection, no calf tenderness, normal capillary refill, no pedal edema Neurologic/Psych: no motor/sensory deficits, alert, normal mood/affect, normal reflexes Skin: normal color, warm/dry, no rash Hospital Course ACUTE DIVERTICULITIS: -3rd lifetime episode -CT Abd/pelvis do not indicate any abscess; report moderate colonic diverticulosis with evidence of acute diverticulitis involving the distal descending colon. No intraperitoneal free air is seen. 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 Discharge Instructions Discharge Instructions Date of Service November 17, 2017. Admission Reason for Admission: Acute Diverticulitis Discharge Discharge Diagnosis / Problem: ACUTE DIVERTICULITIS Discharge Goals Goal(s): Diagnostic testing, Therapeutic intervention Activity Recommendations Activity Limitations: as noted below (NO HEAVY EXERTION UNTIL RE-EVALUATED BY PRIMARY CARE PHYSICIAN) Lifting Limitations: until after follow-up appointment Exercise/Sports Limitations: until after follow-up appointment Driving or Machine Use: NO DRIVING UNTIL RE-EVALUATED BY PRIMARY CARE PHYSICIAN . Instructions / Follow-Up Instructions / Follow-Up PLEASE REVIEW YOUR NEW MEDICATION LIST AND FOLLOW INSTRUCTIONS CAREFULLY. ENSURE ADEQUATE DAILY FLUID INTAKE. CALL YOUR PRIMARY CARE PHYSICIAN OR RETURN TO ER IMMEDIATELY IF WITH RECURRENCE OF SYMPTOMS, INCREASING ABDOMINAL PAIN, FEVER/CHILLS, NAUSEA, BLOODY OR BLACK STOOLS. FOLLOW UP WITH PRIMARY CARE PHYSICIAN THIS COMING WEDNESDAY. Current Hospital Diet Patient's current hospital diet: AHA Diet (Heart Healthy), Low Lactose Diet Discharge Diet Recommended Diet: AHA Diet (Heart Healthy), Low Fiber Diet, Low Fat Diet, Low Lactose Diet Procedures Procedures Performed: CT CSCAN OF THE ABOMEN AND PELVIS Pending Studies Studies pending at discharge: no Medical Emergencies . Who to Call and When: Medical Emergencies: If at any time you feel your situation is an emergency, please call 911 immediately. . Non-Emergent Contact Non-Emergency issues call your: Primary Care Provider Call Non-Emergent contact if: you have a fever, your pain is not controlled, your pain is worsening, you have any medication questions . . "Provider Documentation" section prepared by Manuel Clifford.
== END 2017-11-17 16:36 | disposition home or self-care (01) | DRG 392 ==
LOC: C.EDB 10:16 → C.4E 15:53 → ENRESERV 16:12
PROVIDERS: ADMIT Internal Medicine; ATTEND Internal Medicine
DX: K57.32 Diverticulitis of large intestine without perforation or abscess without bleeding (principal); K76.0 Fatty (change of) liver, not elsewhere classified; D17.5 Benign lipomatous neoplasm of intra-abdominal organs; N20.0 Calculus of kidney; I10 Essential (primary) hypertension; J30.9 Allergic rhinitis, unspecified; F32.9 Major depressive disorder, single episode, unspecified; G47.33 Obstructive sleep apnea (adult) (pediatric); K21.9 Gastro-esophageal reflux disease without esophagitis; Z79.899 Other long term (current) drug therapy; Z87.19 Personal history of other diseases of the digestive system; Z87.11 Personal history of peptic ulcer disease; Z87.891 Personal history of nicotine dependence; Z88.2 Allergy status to sulfonamides; Z83.3 Family history of diabetes mellitus; Z82.49 Family history of ischemic heart disease and other diseases of the circulatory system; Z83.79 Family history of other diseases of the digestive system